=== PATIENT | female | born 1995 | race African-American/Black ===

== ENCOUNTER 2017-07-21 16:42 | Emergency (ER) | payer MEDICAID | END 2017-07-21 19:02 | disposition home or self-care (01) | LOC: D.ER 16:42 | DX: J20.9 Acute bronchitis, unspecified (principal) ==

== ENCOUNTER 2017-08-10 16:35 | Emergency (ER) | payer MEDICAID ==
[2017-08-10 18:12] LABS: BASOPHILS 0.2 % (0-2); EOSINOPHILS 1.7 % (0-7); HEMATOCRIT 41.7 % (36.0-48.0); IMMATURE GRANULOCYTES 0.2 % (0-5); LYMPHOCYTES 25.5 % (15-50); MCH 29.2 pg (26.0-34.0); MCHC 33.6 g/dL (31.0-37.0); MCV 87.1 fL (80.0-100.0); MEAN PLATELET VOLUME 9.5 fL (7.4-10.4); MONOCYTES 14.4 % (2-11); PLATELET COUNT 193 10x3/uL (130-400); RBC 4.79 10x6/uL (4.00-5.40); RDW 12.6 % (11.5-14.5); WBC 4.2 10x3/uL (4.8-10.8)
== END 2017-08-10 18:39 | disposition home or self-care (01) ==
LOC: D.ER 16:35
PROVIDERS: Emergency Medicine
DX: R09.89 Other specified symptoms and signs involving the circulatory and respiratory systems (principal)

== ENCOUNTER 2017-09-01 23:12 | Emergency (ER) | payer MEDICAID ==
[2017-09-02 00:56] LABS: APPEARANCE HAZY (CLEAR); COLOR YELLOW (YELLOW); SPECIFIC GRAVITY 1.025 (1.005-1.020)
[2017-09-02 00:57] LABS: BILIRUBIN NEGATIVE (NEGATIVE); GLUCOSE NEGATIVE (NEGATIVE); KETONE NEGATIVE (NEGATIVE); NITRITE NEGATIVE (NEGATIVE); PROTEIN NEGATIVE (NEGATIVE); UROBILINOGEN NORMAL (NORMAL)
[2017-09-02 00:58] LABS: BACTERIA MODERATE /hpf (NONE SEEN); EPITHELIAL CELLS 0-5 /hpf (0-5); MUCUS <1+ /lpf (NONE SEEN); RED CELLS - URINE 0-5 /hpf (0-5)
== END 2017-09-02 01:19 | disposition home or self-care (01) ==
LOC: D.ER 23:12
PROVIDERS: Nurse Practitioner Family
DX: R10.2 Pelvic and perineal pain (principal); N39.0 Urinary tract infection, site not specified; A59.9 Trichomoniasis, unspecified